=== PATIENT | female | born 1990 | race Two or more races ===

== ENCOUNTER 2023-02-28 11:36 | Emergency (ER) | payer MEDICAID, OTHER ==
[~2023-02-28] VITALS: Ht 157.5 cm; Wt 109.0 kg
[2023-02-28 15:18] VITALS: BP 128/78; PULSE 78; RESP 18; TEMP 97.4; O2SAT 97
[2023-02-28] MEDS ORDERED: ACETAMINOPHEN 500 MG TAB PO ONE (16:00)
[2023-02-28] MEDS ORDERED: DexAMETHasone SOD PHOS 10MG/1ML VIAL INJ PO ONE (16:00)
[2023-02-28] MEDS ORDERED: KETOROLAC TROMETH 60MG/2ML VIAL IM ONE (16:00)
[2023-02-28] MEDS ORDERED: ALBU0.084 NEB (16:42)
[2023-02-28] MEDS ORDERED: PROM1SOL4 PO (16:42)
[2023-02-28] MEDS ORDERED: IBUP1TAB5 PO (16:42)
== END 2023-02-28 16:44 | disposition home or self-care (01) ==
LOC: ER 11:36
DX: J06.9 Acute upper respiratory infection, unspecified (principal)
CPT/HCPCS: 96372; 99283; J1100; J1885

== ENCOUNTER 2023-06-17 10:53 | Emergency (ER) | payer SELFPAY ==
[~2023-06-17] VITALS: Ht 154.9 cm; Wt 100.0 kg
[~2023-06-17 10:53] MED LIST: ALBU0.084 NEB; IBUP1TAB5 PO; PROM1SOL4 PO
[2023-06-17 11:00] VITALS: BP 153/94; PULSE 95; RESP 18; O2SAT 97
[2023-06-17] MEDS ORDERED: NABU-72 PO (11:56)
== END 2023-06-17 12:06 | disposition home or self-care (01) ==
LOC: ER 10:53
DX: S33.5XXA Sprain of ligaments of lumbar spine, initial encounter (principal); Z79.899 Other long term (current) drug therapy; V89.2XXA Person injured in unspecified motor-vehicle accident, traffic, initial encounter; Y93.I9 Activity, other involving external motion; Y92.411 Interstate highway as the place of occurrence of the external cause; Y99.8 Other external cause status
CPT/HCPCS: 72100

== ENCOUNTER 2023-08-10 09:02 | Emergency (ER) | payer MEDICAID ==
[~2023-08-10] VITALS: Ht 154.9 cm; Wt 115.8 kg
[~2023-08-10 09:02] MED LIST changes: +NABU-72 PO
[2023-08-10 09:55] VITALS: BP 124/85; PULSE 75; RESP 15; TEMP 98.1; O2SAT 100
[2023-08-10] MEDS ORDERED: IBUP-1456 PO (10:15)
== END 2023-08-10 10:17 | disposition home or self-care (01) ==
LOC: ER 09:02
DX: S63.8X1A Sprain of other part of right wrist and hand, initial encounter (principal); Z79.899 Other long term (current) drug therapy; W01.0XXA Fall on same level from slipping, tripping and stumbling without subsequent striking against object, initial encounter; Y93.89 Activity, other specified; Y92.89 Other specified places as the place of occurrence of the external cause; Y99.8 Other external cause status
CPT/HCPCS: 73130